=== PATIENT | female | born 1960 | race African-American/Black ===

== ENCOUNTER 2017-01-10 14:06 | Inpatient (IN) | payer MEDICAID ==
[~2017-01-10] VITALS: Ht 157.5 cm; Wt 50.8 kg
[~2017-01-10 14:06] MED LIST: ABAC1TAB14 PO; ALBU18HF2 INH; ALBU2.5V13 HHN; ATOR10TA PO; AZIT500T3 PO; BUDE6HFA INH; DEXTL PO; FISH1CAP38 PO; FLUT1DIS3 ORI; FURO20TA4 PO; INSLAN SQ; LEVVL SUBCUT; LISI2.5T47 PO; METO-396 PO; METO25TA6 PO; MULT-685 PO; NAPR-679 PO; OMEP20CA10 PO; P20 PO; POLY15DR56 OP; PRED5TAB48 PO; SULF-293 PO; THEOL PO; Theophylline Anhydrous PO
[2017-01-10] MEDS ORDERED: SODIUM CHLORIDE 0.9% 10ML VIAL ONE (14:34)
[2017-01-10] MEDS ORDERED: IOHEXOL-350 100 ML BOTTLE ONE (14:34)
[2017-01-10] MEDS ORDERED: IPRATROPIUM BROMIDE (0.02%) 0.5MG/2.5ML NEB HHN STA (15:23)
[2017-01-10] MEDS ORDERED: PREDNISONE 20MG TABLET PO STA (15:23)
[2017-01-10] MEDS ORDERED: ALBUTEROL (0.083%) 2.5MG/3ML NEB HHN STA (15:23)
[2017-01-10] MEDS ORDERED: METHYLPREDNISOLONE SOD SUCC 125 MG/2 ML VIAL IV STA (15:23)
[2017-01-10 17:05] LABS: BASOPHILS % 0.1 % (0.0-2.0); EOSINOPHILS % 2.1 % (0.0-5.0); HEMATOCRIT. 34.6 % (36.0-48.0); HEMOGLOBIN. 10.9 g/dL (12.0-16.0); LYMPHOCYTES % 33.5 % (20.0-50.0); MEAN CORPUSCULAR HEMOGLOBIN 30.7 pg (28.0-32.0); MEAN CORPUSCULAR VOLUME 97.5 fL (81.0-99.0); MEAN PLATELET VOLUME 8.1 fl (7.4-10.4); MONOCYTES % 12.4 % (2.0-8.0); NEUTROPHILS % 51.9 % (40.0-76.0); PLATELET 144 x1000/uL (130-400); RED BLOOD CELL COUNT 3.55 mill/uL (4.2-5.4); RED CELL DISTRIBUTION WIDTH 13.9 % (11.6-14.6)
[2017-01-10 17:16] LABS: CARBON DIOXIDE 37 mEq/L (21-32); CHLORIDE 103 mEq/L (98-107); TROPONIN I < 0.02 ng/mL (0.00-0.04)
[2017-01-10] MEDS ORDERED: ALBUTEROL (0.083%) 2.5MG/3ML NEB ONE (19:25)
[2017-01-10] MEDS ORDERED: MORPHINE SULFATE 4 MG/ML CPJ (NOT FOR IM USE) IV ONE (20:30)
[2017-01-10 22:20] VITALS: BP 136/57
[2017-01-10] MEDS ORDERED: ONDANSETRON HCL 4MG/2ML VIAL IV PRN (22:45)
[2017-01-10] MEDS ORDERED: ZOLPIDEM TARTRATE 5MG TABLET PO PRN (22:45)
[2017-01-10] MEDS ORDERED: MAGNESIUM HYDROXIDE 400MG/5ML 30ML UDC PO PRN (22:45)
[2017-01-10] MEDS ORDERED: DIPHENHYDRAMINE 50MG/ML VIAL IV PRN (22:45)
[2017-01-10] MEDS ORDERED: CLONIDINE 0.1MG TABLET PO PRN (22:45)
[2017-01-10] MEDS ORDERED: IPRATROPIUM/ALBUTEROL 0.5-3(2.5)MG/3ML NEB INH PRN (22:45)
[2017-01-10] MEDS ORDERED: MAGNESIUM/ALUMINUM HYDROXIDE/SIMETHICONE 30ML UDC PO PRN (22:45)
[2017-01-10] MEDS ORDERED: GUAIFENESIN 200MG/10ML SUGAR FREE UDC PO PRN (22:45)
[2017-01-10 22:50] VITALS: BP 137/57
[2017-01-10] MEDS ORDERED: DOLU50TA PO (23:55)
[2017-01-10] MEDS ORDERED: EMTR1TAB12 PO (23:55)
[2017-01-10] MEDS ORDERED: MOME13HF INH (23:59)
[2017-01-10] MEDS ORDERED: IPRA4AER IH (23:59)
[2017-01-10] MEDS ORDERED: TIOT18CA3 INH (23:59)
[2017-01-11] VITALS: BP 118/52
[2017-01-11] MEDS: IPRATROPIUM/ALBUTEROL 0.5-3(2.5)MG/3ML NEB HHN SCH ×6 (00:13→21:16)
[2017-01-11] MEDS ORDERED: DEXTROSE 50% WATER 50ML SYRINGE IV PRN (00:30)
[2017-01-11] MEDS ORDERED: GUAIFENESIN-DM 200MG-20MG/10ML UDC PO PRN (00:30)
[2017-01-11 04:00] VITALS: BP 125/58
[2017-01-11] MEDS: SODIUM CHLORIDE 0.9% INJ 3ML FLUSH IVF SCH ×3 (05:57→23:12)
[2017-01-11] MEDS: OMEPRAZOLE 20MG CAPSULE EXTENDED RELEASE PO SCH (05:57)
[2017-01-11] MEDS: METHYLPREDNISOLONE SOD SUCC 125 MG/2 ML VIAL IV SCH ×3 (05:57→22:59)
[2017-01-11] MEDS: BLOOD SUGAR DIAGNOSTIC STRIP TEST SCH ×4 (06:00→21:00)
[2017-01-11] MEDS: ACETAMINOPHEN 325MG TABLET PO PRN ×4 (06:10→22:56)
[2017-01-11] MEDS: INSULIN LISPRO 100 UNITS/ML SUBCUT SCH ×4 (06:16→23:06)
[2017-01-11 08:00] VITALS: BP 121/53
[2017-01-11] MEDS: FISH OIL/OMEGA-3 FATTY ACIDS 1000MG CAPSULE PO SCH (09:00)
[2017-01-11] MEDS: SULFAMETHOXAZOLE/TRIMETHOPRIM 800/160MG TABLET PO SCH (09:53)
[2017-01-11] MEDS: METOPROLOL TARTRATE 25MG TABLET PO SCH ×2 (09:53→22:58)
[2017-01-11] MEDS: LISINOPRIL 2.5MG TABLET PO SCH (09:53)
[2017-01-11] MEDS: INSULIN DETEMIR UD 100 UNITS/ML SYR SUBCUT SCH (10:54)
[2017-01-11 11:47] VITALS: BP 116/57
[2017-01-11] MEDS ORDERED: MEDICATION NOT ON FORMULARY EA (Abacavir/Dolutegravir/Lamivudi (Triumeq Tablet) 1 EACH) PO SCH (12:30)
[2017-01-11] MEDS ORDERED: POTASSIUM CHLORIDE 20MEQ TABLET SR PO SCH (13:00)
[2017-01-11] MEDS ORDERED: DOLUTEGRAVIR SODIUM 50 MG PO SCH (14:00)
[2017-01-11] MEDS ORDERED: ABACAVIR SULFATE 300MG TABLET PO SCH (14:00)
[2017-01-11] MEDS ORDERED: LAMIVUDINE 150MG TABLET PO SCH (14:00)
[2017-01-11] MEDS: TIVICAY (DOLUTEGRAVIR) 50MG TABLET PO SCH (15:35)
[2017-01-11] MEDS: DESCOVY PO SCH (15:35)
[2017-01-11] MEDS: AZITHROMYCIN 500 MG TABLET PO SCH (15:36)
[2017-01-11 16:00] VITALS: BP 108/59
[2017-01-11 20:00] VITALS: BP 123/66
[2017-01-11] MEDS: BUDESONIDE 0.5MG/2ML NEB HHN SCH (21:16)
[2017-01-11] MEDS: ATORVASTATIN CALCIUM 10MG TABLET PO SCH (23:04)
[2017-01-12] VITALS: BP 116/55
[2017-01-12] MEDS: IPRATROPIUM/ALBUTEROL 0.5-3(2.5)MG/3ML NEB HHN SCH ×6 (01:02→20:21)
[2017-01-12 04:00] VITALS: BP 105/62
[2017-01-12] MEDS: BLOOD SUGAR DIAGNOSTIC STRIP TEST SCH ×4 (06:12→20:46)
[2017-01-12] MEDS: SODIUM CHLORIDE 0.9% INJ 3ML FLUSH IVF SCH ×3 (06:13→20:46)
[2017-01-12] MEDS: METHYLPREDNISOLONE SOD SUCC 125 MG/2 ML VIAL IV SCH (06:13)
[2017-01-12] MEDS: OMEPRAZOLE 20MG CAPSULE EXTENDED RELEASE PO SCH (06:13)
[2017-01-12 08:00] VITALS: BP 133/70
[2017-01-12] MEDS: BUDESONIDE 0.5MG/2ML NEB HHN SCH ×2 (08:25→20:20)
[2017-01-12] MEDS: FISH OIL/OMEGA-3 FATTY ACIDS 1000MG CAPSULE PO SCH (08:50)
[2017-01-12] MEDS: DESCOVY PO SCH (08:53)
[2017-01-12] MEDS: TIVICAY (DOLUTEGRAVIR) 50MG TABLET PO SCH (08:53)
[2017-01-12] MEDS: INSULIN LISPRO 100 UNITS/ML SUBCUT SCH ×4 (08:55→20:48)
[2017-01-12] MEDS: AZITHROMYCIN 500 MG TABLET PO SCH (08:56)
[2017-01-12] MEDS: LISINOPRIL 2.5MG TABLET PO SCH (08:56)
[2017-01-12] MEDS: SULFAMETHOXAZOLE/TRIMETHOPRIM 800/160MG TABLET PO SCH (08:56)
[2017-01-12] MEDS: METOPROLOL TARTRATE 25MG TABLET PO SCH ×2 (08:57→20:46)
[2017-01-12] MEDS: INSULIN DETEMIR UD 100 UNITS/ML SYR SUBCUT SCH (09:08)
[2017-01-12 11:54] VITALS: BP 116/51
[2017-01-12 16:00] VITALS: BP 114/62
[2017-01-12] MEDS: METHYLPREDNISOLONE SOD SUCC 40 MG/ML VIAL IV SCH (17:04)
[2017-01-12 20:00] VITALS: BP 134/66
[2017-01-12] MEDS: ATORVASTATIN CALCIUM 10MG TABLET PO SCH (20:45)
[2017-01-12] MEDS: ACETAMINOPHEN 325MG TABLET PO PRN (20:57)
[2017-01-13] VITALS: BP 120/63
[2017-01-13] MEDS: IPRATROPIUM/ALBUTEROL 0.5-3(2.5)MG/3ML NEB HHN SCH ×3 (00:25→08:44)
[2017-01-13 06:00] VITALS: BP 137/72
[2017-01-13] MEDS: BLOOD SUGAR DIAGNOSTIC STRIP TEST SCH ×2 (06:24→12:36)
[2017-01-13] MEDS: SODIUM CHLORIDE 0.9% INJ 3ML FLUSH IVF SCH ×2 (06:25→15:01)
[2017-01-13] MEDS: INSULIN LISPRO 100 UNITS/ML SUBCUT SCH ×2 (06:29→12:15)
[2017-01-13 08:00] VITALS: BP 139/56
[2017-01-13] MEDS: BUDESONIDE 0.5MG/2ML NEB HHN SCH (08:44)
[2017-01-13] MEDS: FISH OIL/OMEGA-3 FATTY ACIDS 1000MG CAPSULE PO SCH (08:59)
[2017-01-13] MEDS: METHYLPREDNISOLONE SOD SUCC 40 MG/ML VIAL IV SCH (09:00)
[2017-01-13] MEDS ORDERED: FAMOTIDINE 20MG TABLET PO SCH (09:00)
[2017-01-13] MEDS: AZITHROMYCIN 500 MG TABLET PO SCH (09:00)
[2017-01-13] MEDS: SULFAMETHOXAZOLE/TRIMETHOPRIM 800/160MG TABLET PO SCH (09:01)
[2017-01-13] MEDS: DESCOVY PO SCH (09:01)
[2017-01-13] MEDS: TIVICAY (DOLUTEGRAVIR) 50MG TABLET PO SCH (09:01)
[2017-01-13] MEDS: LISINOPRIL 2.5MG TABLET PO SCH (09:02)
[2017-01-13] MEDS: METOPROLOL TARTRATE 25MG TABLET PO SCH (09:03)
[2017-01-13 09:11] LABS: ABSOLUTE MONOCYTES 0.7 x10E3/uL (0.1-0.9); ABSOLUTE NEUTROPHILS 12.8 x10E3/uL (1.4-7.0); BASOPHILS 0 % (.); HEMOGLOBIN 9.9 g/dL (11.1-15.9); IMMATURE GRANULOCYTES 0 % (.); LYMPHOCYTES 7 % (.); MEAN CORPUSCULAR HEMOGLOBIN 30.3 pg (26.6-33.0); MEAN CORPUSCULAR VOLUME 101 fL (79-97); MONOCYTES 5 % (.); NEUTROPHILS 88 % (.); PLATELETS 179 x10E3/uL (150-379); RBC 3.27 x10E6/uL (3.77-5.28); RED CELL DISTRIBUTION WIDTH 13.8 % (12.3-15.4); WBC 14.5 x10E3/uL (3.4-10.8)
[2017-01-13] MEDS: ACETAMINOPHEN 325MG TABLET PO PRN (09:34)
[2017-01-13] MEDS: INSULIN DETEMIR UD 100 UNITS/ML SYR SUBCUT SCH (11:00)
[2017-01-13 12:00] VITALS: BP 131/68
[2017-01-13 13:09] LABS: % CD 3 POS. LYMPHOCYTES 68.5 % (57.5-86.2); % CD 4 POS. LYMPHOCYTES 13.6 % (30.8-58.5); % CD 8 POS. LYMPH 55.5 % (12.0-35.5); ABSOLUTE CD 3 685 /uL (622-2402); ABSOLUTE CD 4 HELPER 136 /uL (359-1519); ABSOLUTE CD 8 SUPPRESSOR 555 /uL (109-897); CD4/CD8 RATIO 0.25 (0.92-3.72)
[2017-01-13 16:00] VITALS: BP 154/78
[2017-01-13 16:26] VITALS: BP 154/78
[2017-01-14] MEDS ORDERED: PREDNISONE 20MG TABLET PO SCH (07:15)
== END 2017-01-13 16:20 | disposition home or self-care (01) | DRG 892 ==
LOC: ER 14:37 → 5WST 19:32 → ENRESERV 20:29
PROVIDERS: ADMIT Internal Medicine; ATTEND Internal Medicine
DX: J96.00 Acute respiratory failure, unspecified whether with hypoxia or hypercapnia (principal); B20 Human immunodeficiency virus [HIV] disease; J44.1 Chronic obstructive pulmonary disease with (acute) exacerbation; I10 Essential (primary) hypertension; I82.B12 Acute embolism and thrombosis of left subclavian vein; I77.1 Stricture of artery; E11.9 Type 2 diabetes mellitus without complications; Z99.81 Dependence on supplemental oxygen; Z79.52 Long term (current) use of systemic steroids; Z87.01 Personal history of pneumonia (recurrent); I69.354 Hemiplegia and hemiparesis following cerebral infarction affecting left non-dominant side; Z87.891 Personal history of nicotine dependence
CPT/HCPCS: 36415; 71010; 73206; 80053; 82962; 83880; 84484; 85025; 86359; 86360; 94640; 94644; 94664; 96374; 96375; 99291; A4216; J1815; J2270; J2920; J2930; J7512; J7611; J7620; J7626; Q9967

== ENCOUNTER 2017-06-09 16:58 | Inpatient (IN) | payer MEDICAID ==
[~2017-06-09] VITALS: Ht 160 cm; Wt 61.7 kg
[~2017-06-09 16:58] MED LIST changes: -DEXTL PO; +DOLU50TA PO; +EMTR1TAB12 PO; -FLUT1DIS3 ORI; -FURO20TA4 PO; +HYDR-4001 PO; -INSLAN SQ; +IPRA4AER IH; -LISI2.5T47 PO; -METO-396 PO; -METO25TA6 PO; -NAPR-679 PO; -OMEP20CA10 PO; -P20 PO; +P50 PO; -POLY15DR56 OP; -PRED5TAB48 PO; -Theophylline Anhydrous PO
[2017-06-09] MEDS ORDERED: METHYLPREDNISOLONE SOD SUCC 125 MG/2 ML VIAL IV STA (16:59)
[2017-06-09] MEDS ORDERED: ALBUTEROL (0.083%) 2.5MG/3ML NEB HHN STA (16:59)
[2017-06-09] MEDS ORDERED: IPRATROPIUM BROMIDE (0.02%) 0.5MG/2.5ML NEB HHN STA (16:59)
[2017-06-09 17:26] LABS: HEMATOCRIT. 37.2 % (36.0-48.0); HEMOGLOBIN. 11.6 g/dL (12.0-16.0); MEAN CORPUSCULAR HEMOGLOBIN 30.9 pg (28.0-32.0); MEAN CORPUSCULAR VOLUME 99.3 fL (81.0-99.0); MEAN PLATELET VOLUME 8.1 fl (7.4-10.4); PLATELET 254 x1000/uL (130-400); RED BLOOD CELL COUNT 3.75 mill/uL (4.2-5.4); RED CELL DISTRIBUTION WIDTH 13.8 % (11.6-14.6)
[2017-06-09 17:33] LABS: INR 1.2; PROTHROMBIN TIME 12.7 sec (9.4-11.6)
[2017-06-09 17:34] LABS: CHLORIDE 102 mEq/L (98-107)
[2017-06-09 18:02] LABS: PLATELET ESTIMATE NORMAL
[2017-06-09] MEDS ORDERED: MORPHINE SULFATE 4 MG/ML CPJ (NOT FOR IM USE) IV STA (19:44)
[2017-06-09] MEDS ORDERED: SODIUM CHLORIDE 0.9% 1,000 ML IV ONE (19:44)
[2017-06-09] MEDS ORDERED: INSULIN REGULAR (HUMULIN R) 300UNITS/3ML IV ONE (19:45)
[2017-06-09 20:24] LABS: HEMATOCRIT. 38.3 % (36.0-48.0); HEMOGLOBIN. 11.8 g/dL (12.0-16.0); MEAN CORPUSCULAR HEMOGLOBIN 30.8 pg (28.0-32.0); MEAN CORPUSCULAR VOLUME 100.1 fL (81.0-99.0); MEAN PLATELET VOLUME 7.7 fl (7.4-10.4); PLATELET 183 x1000/uL (130-400); RED BLOOD CELL COUNT 3.83 mill/uL (4.2-5.4); RED CELL DISTRIBUTION WIDTH 13.6 % (11.6-14.6)
[2017-06-09] MEDS ORDERED: CLONIDINE 0.1MG TABLET PO PRN (20:30)
[2017-06-09] MEDS ORDERED: LORAZEPAM 0.5MG TABLET PO PRN (20:30)
[2017-06-09] MEDS ORDERED: ONDANSETRON HCL 4MG/2ML INJ IV PRN (20:30)
[2017-06-09] MEDS ORDERED: ACETAMINOPHEN 325MG TABLET PO PRN (20:30)
[2017-06-09 21:15] VITALS: BP 99/56
[2017-06-09 21:17] VITALS: BP 98/52
[2017-06-09 21:20] LABS: PLATELET ESTIMATE NORMAL
[2017-06-09 22:00] VITALS: BP 98/70
[2017-06-09] MEDS ORDERED: LEVOFLOXACIN 500MG PREMIX 100 ML IV SCH (23:00)
[2017-06-09] MEDS: METHYLPREDNISOLONE SOD SUCC 125 MG/2 ML VIAL IV SCH (23:23)
[2017-06-09] MEDS: SODIUM CHLORIDE 0.9% 1,000 ML IV SCH (23:25)
[2017-06-10] VITALS (11 sets, daily range): BP systolic 88–113; BP diastolic 45–68
[2017-06-10] MEDS: IPRATROPIUM/ALBUTEROL 0.5-3(2.5)MG/3ML NEB HHN SCH ×6 (00:40→20:17)
[2017-06-10] MEDS: BLOOD SUGAR DIAGNOSTIC STRIP TEST SCH ×4 (07:30→21:30)
[2017-06-10] MEDS ORDERED: DEXTROSE 50% WATER 50ML SYRINGE IV PRN (07:30)
[2017-06-10] MEDS: INSULIN LISPRO 100 UNITS/ML SUBCUT SCH ×4 (08:00→21:29)
[2017-06-10 08:43] LABS: HEMATOCRIT. 27.2 % (36.0-48.0); HEMOGLOBIN. 8.5 g/dL (12.0-16.0); MEAN CORPUSCULAR HEMOGLOBIN 30.8 pg (28.0-32.0); MEAN CORPUSCULAR VOLUME 98.3 fL (81.0-99.0); MEAN PLATELET VOLUME 8.1 fl (7.4-10.4); PLATELET 138 x1000/uL (130-400); RED BLOOD CELL COUNT 2.77 mill/uL (4.2-5.4); RED CELL DISTRIBUTION WIDTH 13.1 % (11.6-14.6)
[2017-06-10 09:00] LABS: CHLORIDE 109 mEq/L (98-107)
[2017-06-10] MEDS ORDERED: ENOXAPARIN 40MG/0.4ML SYR SUBCUT SCH (09:00)
[2017-06-10] MEDS: METHYLPREDNISOLONE SOD SUCC 125 MG/2 ML VIAL IV SCH ×2 (09:53→18:25)
[2017-06-10] MEDS: HYDROCODONE/ACETAMINOPHEN 5/325MG TABLET PO PRN ×2 (09:56→17:11)
[2017-06-10 10:06] LABS: TOTAL IRON BINDING CAPACITY 335 ug/dL (250-450)
[2017-06-10 10:15] LABS: BG BASE EXCESS 8.6 mmol/L (-2.0-2.0); BG CARBOXYHEMOGLOBIN 0.3 % (0.5-1.5); BG DEOXYHEMOGLOBIN 6.3 % (0.0-5.0); BG FRACTION INSPIRED OXYGEN 32; BG HCO3 ACT 36.3 mmol/L (22.0-26.0); BG METHEMOGLOBIN 0.3 % (0.0-1.5); BG OXYGEN SATURATION 93.7 % (92.0-98.5); BG OXYHEMOGLOBIN 93.1 % (94.0-97.0); BG PCO2 68.5 mmHg (35.0-45.0); BG PH 7.342 (7.350-7.450); BG PO2 73.3 mmHg (75.0-100.0); BG SAMPLE SITE RIGHT RADIAL; BG VENT MODE NASAL CANNULA
[2017-06-10] MEDS ORDERED: SULFAMETHOXAZOLE/TRIMETHOPRIM 800/160MG TABLET PO NR (10:15)
[2017-06-10] MEDS ORDERED: NON FORMULARY PATIENT HOME MED XX SCH (10:15)
[2017-06-10] MEDS ORDERED: METHYLPREDNISOLONE SOD SUCC 40 MG/ML VIAL IV ONE (10:15)
[2017-06-10] MEDS: FISH OIL/OMEGA-3 FATTY ACIDS 1000MG CAPSULE PO SCH (10:15)
[2017-06-10] MEDS ORDERED: AZITHROMYCIN 500 MG TABLET PO SCH (11:00)
[2017-06-10] MEDS: AZITHROMYCIN 500 MG TABLET PO SCH (11:37)
[2017-06-10] MEDS ORDERED: THEOPHYLLINE ANHYDROUS 80 MG/15 ML 120ML PO SCH (12:00)
[2017-06-10 12:11] LABS: PLATELET ESTIMATE NORMAL
[2017-06-10] MEDS: INSULIN GLARGINE UD 100 UNITS/ML SYR SUBCUT SCH (12:59)
[2017-06-10] MEDS: BUDESONIDE 0.5MG/2ML NEB HHN SCH (13:00)
[2017-06-10] MEDS: TIVICAY 50MG TAB PO SCH (13:02)
[2017-06-10] MEDS: DESCOVY 200MG/25MG TAB PO SCH (13:02)
[2017-06-10 16:44] LABS: HEMATOCRIT 28.9 % (36.0-48.0)
[2017-06-10] MEDS: THEOPHYLLINE ANHYDROUS 80 MG/15 ML 120ML PO SCH (17:12)
[2017-06-10 17:42] LABS: CLARITY URINE CLOUDY (CLEAR); COLOR URINE YELLOW (YELLOW); KETONES URINE NEGATIVE (NEGATIVE); LEUKOCYTE ESTERASE URINE NEGATIVE (NEGATIVE); NITRITE URINE NEGATIVE (NEGATIVE); OCCULT BLOOD URINE NEGATIVE (NEGATIVE); PROTEIN URINE NEGATIVE (NEGATIVE); SPECIFIC GRAVITY URINE 1.025 (1.005-1.030); UROBILINOGEN URINE 0.2 E.U./dL (0.2-1.0)
[2017-06-10 17:52] LABS: *AMPHETAMINES SCREEN URINE NEGATIVE (NEGATIVE); *BARBITURATES SCREEN URINE NEGATIVE (NEGATIVE); *BENZODIAZEPINES SCREEN URINE NEGATIVE (NEGATIVE); *COCAINE SCREEN URINE NEGATIVE (NEGATIVE); CANNABINOID URINE SCREEN NEGATIVE (NEGATIVE); METHADONE URINE SCREEN NEGATIVE (NEGATIVE); OPIATES URINE SCREEN PRESUMTIVE POSITIVE (NEGATIVE); PHENCYCLIDINE URINE SCREEN NEGATIVE (NEGATIVE)
[2017-06-10] MEDS: ATORVASTATIN CALCIUM 10MG TABLET PO SCH (21:28)
[2017-06-11] VITALS (10 sets, daily range): BP systolic 89–137; BP diastolic 51–90
[2017-06-11] MEDS: IPRATROPIUM/ALBUTEROL 0.5-3(2.5)MG/3ML NEB HHN SCH ×6 (00:26→20:34)
[2017-06-11] MEDS: HYDROCODONE/ACETAMINOPHEN 5/325MG TABLET PO PRN ×3 (00:54→16:50)
[2017-06-11] MEDS: METHYLPREDNISOLONE SOD SUCC 125 MG/2 ML VIAL IV SCH ×3 (01:00→18:24)
[2017-06-11] MEDS: SODIUM CHLORIDE 0.9% 1,000 ML IV SCH ×2 (04:00→18:28)
[2017-06-11 07:04] LABS: HEMATOCRIT. 30.8 % (36.0-48.0); HEMOGLOBIN. 9.5 g/dL (12.0-16.0); MEAN CORPUSCULAR HEMOGLOBIN 29.9 pg (28.0-32.0); MEAN CORPUSCULAR VOLUME 97.3 fL (81.0-99.0); PLATELET 161 x1000/uL (130-400); RED BLOOD CELL COUNT 3.17 mill/uL (4.2-5.4); RED CELL DISTRIBUTION WIDTH 13.3 % (11.6-14.6)
[2017-06-11 07:34] LABS: CHLORIDE 108 mEq/L (98-107)
[2017-06-11] MEDS: BUDESONIDE 0.5MG/2ML NEB HHN SCH ×2 (07:46→20:34)
[2017-06-11] MEDS: BLOOD SUGAR DIAGNOSTIC STRIP TEST SCH ×4 (07:48→21:50)
[2017-06-11] MEDS: INSULIN LISPRO 100 UNITS/ML SUBCUT SCH ×4 (08:42→22:02)
[2017-06-11] MEDS: THEOPHYLLINE ANHYDROUS 80 MG/15 ML 120ML PO SCH ×2 (08:43→16:50)
[2017-06-11] MEDS: SULFAMETHOXAZOLE/TRIMETHOPRIM 800/160MG TABLET PO SCH (08:43)
[2017-06-11] MEDS: TIVICAY 50MG TAB PO SCH (08:43)
[2017-06-11] MEDS: AZITHROMYCIN 500 MG TABLET PO SCH (08:43)
[2017-06-11] MEDS: DESCOVY 200MG/25MG TAB PO SCH (08:43)
[2017-06-11 08:54] LABS: BG BASE EXCESS 4.1 mmol/L (-2.0-2.0); BG CARBOXYHEMOGLOBIN 0.2 % (0.5-1.5); BG DEOXYHEMOGLOBIN 6.7 % (0.0-5.0); BG FRACTION INSPIRED OXYGEN 28; BG HCO3 ACT 30.7 mmol/L (22.0-26.0); BG METHEMOGLOBIN 0.3 % (0.0-1.5); BG OXYGEN SATURATION 93.3 % (92.0-98.5); BG OXYHEMOGLOBIN 92.8 % (94.0-97.0); BG PCO2 56.1 mmHg (35.0-45.0); BG PH 7.356 (7.350-7.450); BG PO2 69.3 mmHg (75.0-100.0); BG SAMPLE SITE RIGHT RADIAL; BG VENT MODE NASAL CANNULA
[2017-06-11] MEDS: FISH OIL/OMEGA-3 FATTY ACIDS 1000MG CAPSULE PO SCH (09:00)
[2017-06-11] MEDS: INSULIN GLARGINE UD 100 UNITS/ML SYR SUBCUT SCH (10:47)
[2017-06-11] MEDS: LIDOCAINE HCL 4% CREAM 76GM TUBE TP SCH ×2 (12:39→16:50)
[2017-06-11 14:08] LABS: NUCLEATED RED BLOOD CELLS 1 /100 WBC
[2017-06-11 14:09] LABS: PLATELET ESTIMATE NORMAL
[2017-06-11] MEDS: MONTELUKAST SODIUM 10MG TABLET PO SCH (16:49)
[2017-06-11] MEDS ORDERED: BUDESONIDE 0.25MG/2ML NEB HHN SCH (21:00)
[2017-06-11] MEDS: ATORVASTATIN CALCIUM 10MG TABLET PO SCH (21:50)
[2017-06-12] VITALS (12 sets, daily range): BP systolic 94–168; BP diastolic 59–92
[2017-06-12] MEDS: IPRATROPIUM/ALBUTEROL 0.5-3(2.5)MG/3ML NEB HHN SCH ×7 (00:31→22:00)
[2017-06-12] MEDS: METHYLPREDNISOLONE SOD SUCC 125 MG/2 ML VIAL IV SCH ×2 (02:11→08:55)
[2017-06-12] MEDS: SODIUM CHLORIDE 0.9% 1,000 ML IV SCH (06:11)
[2017-06-12] MEDS: HYDROCODONE/ACETAMINOPHEN 5/325MG TABLET PO PRN ×2 (06:27→20:29)
[2017-06-12] MEDS: BLOOD SUGAR DIAGNOSTIC STRIP TEST SCH ×4 (07:30→20:34)
[2017-06-12] MEDS: BUDESONIDE 0.5MG/2ML NEB HHN SCH ×2 (08:34→20:23)
[2017-06-12] MEDS: INSULIN LISPRO 100 UNITS/ML SUBCUT SCH ×4 (08:55→20:45)
[2017-06-12] MEDS: AZITHROMYCIN 500 MG TABLET PO SCH (08:55)
[2017-06-12] MEDS: FISH OIL/OMEGA-3 FATTY ACIDS 1000MG CAPSULE PO SCH (08:55)
[2017-06-12] MEDS: LIDOCAINE HCL 4% CREAM 76GM TUBE TP SCH ×3 (08:56→17:57)
[2017-06-12] MEDS: THEOPHYLLINE ANHYDROUS 80 MG/15 ML 120ML PO SCH ×2 (08:56→17:55)
[2017-06-12] MEDS: DESCOVY 200MG/25MG TAB PO SCH (08:56)
[2017-06-12] MEDS: TIVICAY 50MG TAB PO SCH (08:57)
[2017-06-12] MEDS: SULFAMETHOXAZOLE/TRIMETHOPRIM 800/160MG TABLET PO SCH (09:03)
[2017-06-12] MEDS: INSULIN GLARGINE UD 100 UNITS/ML SYR SUBCUT SCH (09:49)
[2017-06-12] MEDS: METHYLPREDNISOLONE SOD SUCC 40 MG/ML VIAL IV SCH (17:55)
[2017-06-12] MEDS: MONTELUKAST SODIUM 10MG TABLET PO SCH (17:57)
[2017-06-12] MEDS: ATORVASTATIN CALCIUM 10MG TABLET PO SCH (20:29)
[2017-06-13] VITALS (14 sets, daily range): BP systolic 137–168; BP diastolic 66–102
[2017-06-13] MEDS: IPRATROPIUM/ALBUTEROL 0.5-3(2.5)MG/3ML NEB HHN SCH ×5 (00:20→12:27)
[2017-06-13] MEDS: INSULIN LISPRO 100 UNITS/ML SUBCUT SCH ×2 (08:00→13:26)
[2017-06-13] MEDS: BUDESONIDE 0.5MG/2ML NEB HHN SCH (08:10)
[2017-06-13] MEDS: BLOOD SUGAR DIAGNOSTIC STRIP TEST SCH ×2 (08:12→13:21)
[2017-06-13] MEDS: SULFAMETHOXAZOLE/TRIMETHOPRIM 800/160MG TABLET PO SCH (09:25)
[2017-06-13] MEDS: FISH OIL/OMEGA-3 FATTY ACIDS 1000MG CAPSULE PO SCH (09:25)
[2017-06-13] MEDS: METHYLPREDNISOLONE SOD SUCC 40 MG/ML VIAL IV SCH (09:25)
[2017-06-13] MEDS: AZITHROMYCIN 500 MG TABLET PO SCH (09:25)
[2017-06-13] MEDS: LIDOCAINE HCL 4% CREAM 76GM TUBE TP SCH ×2 (09:25→13:25)
[2017-06-13] MEDS: DESCOVY 200MG/25MG TAB PO SCH (09:26)
[2017-06-13] MEDS: THEOPHYLLINE ANHYDROUS 80 MG/15 ML 120ML PO SCH (09:26)
[2017-06-13] MEDS: TIVICAY 50MG TAB PO SCH (09:26)
[2017-06-13] MEDS: INSULIN GLARGINE UD 100 UNITS/ML SYR SUBCUT SCH (09:27)
[2017-06-13 10:10] LABS: ABSOLUTE LYMPHOCYTES 0.5 x10E3/uL (0.7-3.1); ABSOLUTE MONOCYTES 0.4 x10E3/uL (0.1-0.9); ABSOLUTE NEUTROPHILS 11.5 x10E3/uL (1.4-7.0); BASOPHILS 0 % (Not Estab.); HEMATOCRIT 34.5 % (34.0-46.6); HEMOGLOBIN 10.6 g/dL (11.1-15.9); IMMATURE GRANULOCYTES 2 % (Not Estab.); IMMATURE GRANULOCYTES ABSOLUTE 0.2 x10E3/uL (0.0-0.1); LYMPHOCYTES 4 % (Not Estab.); MEAN CORPUSCULAR HEMOGLOBIN 30.7 pg (26.6-33.0); MEAN CORPUSCULAR HGB CONC. 30.7 g/dL (31.5-35.7); MEAN CORPUSCULAR VOLUME 100 fL (79-97); MONOCYTES 3 % (Not Estab.); NEUTROPHILS 91 % (Not Estab.); PLATELETS 169 x10E3/uL (150-379); RBC 3.45 x10E6/uL (3.77-5.28); RED CELL DISTRIBUTION WIDTH 13.6 % (12.3-15.4); WBC 12.7 x10E3/uL (3.4-10.8)
[2017-06-13] MEDS ORDERED: NITROFURANTOIN 100MG M/M CAPSULE PO SCH (12:00)
[2017-06-13 13:06] LABS: % CD 3 POS. LYMPHOCYTES 64.8 % (57.5-86.2); % CD 4 POS. LYMPHOCYTES 10.3 % (30.8-58.5); ABSOLUTE CD 3 324 (622-2402); ABSOLUTE CD 4 HELPER 52 (359-1519); ABSOLUTE CD 8 SUPPRESSOR 275 (109-897); CD4/CD8 RATIO 0.19 (0.92-3.72)
[2017-06-13] MEDS: HYDROCODONE/ACETAMINOPHEN 5/325MG TABLET PO PRN (13:58)
[2017-06-13] MEDS ORDERED: PREDNISONE 20MG TABLET PO SCH (17:00)
== END 2017-06-13 15:10 | disposition home or self-care (01) | DRG 133 ==
LOC: ER 17:03 → 5EST 18:17 → EDBEDREQ 18:20 → ENRESERV 19:02
PROVIDERS: ADMIT Internal Medicine Geriatric Medicine; ATTEND Internal Medicine Geriatric Medicine
DX: J96.20 Acute and chronic respiratory failure, unspecified whether with hypoxia or hypercapnia (principal); I95.9 Hypotension, unspecified; R65.10 Systemic inflammatory response syndrome (SIRS) of non-infectious origin without acute organ dysfunction; E44.0 Moderate protein-calorie malnutrition; J44.0 Chronic obstructive pulmonary disease with (acute) lower respiratory infection; E11.65 Type 2 diabetes mellitus with hyperglycemia; Z99.81 Dependence on supplemental oxygen; E87.5 Hyperkalemia; M25.561 Pain in right knee; M25.562 Pain in left knee; D64.9 Anemia, unspecified; J20.9 Acute bronchitis, unspecified; M75.02 Adhesive capsulitis of left shoulder; J44.1 Chronic obstructive pulmonary disease with (acute) exacerbation; I10 Essential (primary) hypertension; F17.200 Nicotine dependence, unspecified, uncomplicated; I25.10 Atherosclerotic heart disease of native coronary artery without angina pectoris; N39.0 Urinary tract infection, site not specified; Z79.4 Long term (current) use of insulin; Z79.51 Long term (current) use of inhaled steroids; Z79.899 Other long term (current) drug therapy
CPT/HCPCS: 36415; 36600; 71045; 73560; 80048; 80305; 82010; 82270; 82375; 82805; 82962; 83036; 83540; 83550; 83880; 84484; 85014; 85018; 86359; 86360; 87077; 87186; 93005; 93970; 94640; 94660; 94664; 96374; 96375; 97162; 99291; J1815; J1956; J2270; J2920; J2930; J7030; J7611; J7620; J7626